=== PATIENT | female | born 1995 | race Hispanic/Latino ===

== ENCOUNTER 2021-07-21 21:23 | Emergency (ER) | payer OTHER ==
[~2021-07-21] VITALS: Ht 157.5 cm; Wt 66.0 kg
[2021-07-21] MEDS ORDERED: MOTRIN800 MG PO (23:22)
[2021-07-21] MEDS ORDERED: CLINDAMYCIN HC150 MG PO (23:23)
[2021-07-21] MEDS ORDERED: IMPLANTED BIRTH CONT (23:34)
[2021-07-21] MEDS ORDERED: LORTAB 1010 MG PO (23:43)
[2021-07-21] MEDS ORDERED: CLEOCIN300 MG PO (23:59)
[2021-07-22 00:06] VITALS: BP 131/78
== END 2021-07-22 00:15 | disposition home or self-care (01) | DRG 159 ==
LOC: ED 21:23
DX: K04.7 Periapical abscess without sinus (principal)

== ENCOUNTER 2021-09-09 11:23 | Emergency (ER) | payer OTHER ==
[~2021-09-09] VITALS: Ht 157.5 cm; Wt 76.0 kg
[~2021-09-09 11:23] MED LIST: CLEOCIN300 MG PO; CLINDAMYCIN HC150 MG PO; IMPLANTED BIRTH CONT; LORTAB 1010 MG PO; MOTRIN800 MG PO
[2021-09-09] MEDS ORDERED: ZPAK PO (14:20)
[2021-09-09 14:40] VITALS: BP 121/73
== END 2021-09-09 14:40 | disposition home or self-care (01) | DRG 153 ==
LOC: ED 11:23
DX: J06.9 Acute upper respiratory infection, unspecified (principal); Z20.822 Contact with and (suspected) exposure to COVID-19

== ENCOUNTER 2022-12-14 15:47 | Emergency (ER) | payer OTHER ==
[~2022-12-14] VITALS: Ht 157.5 cm; Wt 83.9 kg
[~2022-12-14 15:47] MED LIST changes: +ZPAK PO
[2022-12-14 15:52] VITALS: BP 132/80
[2022-12-14 16:00] VITALS: BP 140/83
[2022-12-14 16:16] VITALS: BP 104/72
[2022-12-14] MEDS ORDERED: KEFLEX500 MG PO (16:22)
[2022-12-14 16:30] VITALS: BP 123/73
[2022-12-14 16:42] VITALS: BP 119/67
== END 2022-12-14 17:00 | disposition home or self-care (01) | DRG 914 ==
LOC: ED 15:47
PROC: 0HCKXZZ Extirpation of Matter from Right Lower Leg Skin, External Approach (ICD-10-PCS; principal; 2022-12-14)
DX: S81.841A Puncture wound with foreign body, right lower leg, initial encounter (principal); W26.8XXA Contact with other sharp object(s), not elsewhere classified, initial encounter; Y93.E9 Activity, other interior property and clothing maintenance; Y92.009 Unspecified place in unspecified non-institutional (private) residence as the place of occurrence of the external cause